=== PATIENT | male | born 1950 | race Caucasian/White ===

== ENCOUNTER 2021-02-07 22:01 | Inpatient (IN) | payer OTHER ==
[~2021-02-07] VITALS: Ht 172.7 cm; Wt 73.9 kg
--- NOTE | ~2021-02-07 | EKG ---
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: : 1950 Requested By: Nelida Crawford Order Number: [id number] MD: Measurements Intervals [place] Rate: 83 P: 44 WA: 169 QRS: -16 QRSD: 103 T: 32 QT: 382 QTc: 449 Interpretive Statements Sinus rhythm Borderline left axis deviation RSR' in V1 or V2, probably normal variant Compared to ECG 02/07/2021 22:15:54 Short [place] interval no longer present Atrial abnormality no longer present Left anterior fascicular block no longer present Right ventricular hypertrophy no longer present T-wave abnormality no longer present [email or web address] By: 22 2223 [facility] [place], [place] /AMARILIS
[2021-02-07 22:09] VITALS: BP 126/71
[2021-02-07 22:37] LABS: ABSOLUTE NEUTROPHILS 5.7 thou/uL (1.4-8.2); BASOPHILS 0.2 % (0.0-2.0); EOSINOPHILS 0.1 % (0.0-3.0); HEMATOCRIT 42.7 % (42.0-52.0); HEMOGLOBIN 14.2 gm/dL (14.0-18.0); LYMPHOCYTES 13.9 % (24.0-44.0); MCH 30.2 pg (26.0-34.0); MCHC 33.3 g/dL (28.0-37.0); MCV 90.5 fL (80.0-100.0); MONOCYTES 3.9 % (1.0-8.0); PLATELET COUNT 140 thou/uL (150-400); POLYS 81.9 % (36.0-66.0); RBC 4.71 mil/uL (4.50-6.00); RDW 13.4 % (10.5-14.5); WBC 6.9 thou/uL (4.0-11.0)
[2021-02-07 22:51] LABS: ANION GAP 14 mmol/L (7-16); BUN 13 mg/dL (7-18); CALCIUM 8.6 mg/dL (8.5-10.1); CHLORIDE 106 mmol/L (98-107); CO2 24 mmol/L (21-32); CREATININE 1.2 mg/dL (0.7-1.3); GLUCOSE 133 mg/dL (74-106); POTASSIUM 3.2 mmol/L (3.5-5.1); SODIUM 144 mmol/L (136-145)
[2021-02-07 23:00] LABS: ALBUMIN 3.2 g/dL (3.4-5.0); DIRECT BILIRUBIN < 0.1 mg/dL (<0.1-0.2); SGOT 87 U/L (15-37); SGPT 66 U/L (16-63); TOTAL BILIRUBIN 0.4 mg/dL (0.2-1.0); TOTAL PROTEIN 6.8 g/dL (6.4-8.2)
[2021-02-08 07:09] VITALS: BP 139/81
[2021-02-08 08:36] VITALS: BP 139/76
--- NOTE | 2021-02-08 10:25 | EKG ---
[place] [address] [address] [facility] [place] [address] ELECTROCARDIOGRAM REPORT Name: MARLENE PATEL Room #: 170-8 ADM IN M.R.#: [id number] Admission: 02/08/21 Attend Phys: Nelida Crawford MD Discharge: Date of : 48 Report #: [id number] [facility] ED Test Date: 2021-02-07 Test Time: 22:15:54 Pat Name: MARLENE PATEL Department: Room: 170 Gender: M Manager Services: MAGDI : 1950 Requested By: Miguel Angel Johnston Order Number: [id number] MD: Obdulio Lawrence Measurements Intervals [place] Rate: 84 P: 42 [place]: 47 QRS: -49 QRSD: 102 T: 18 QT: 414 QTc: 490 Interpretive Statements Marked artifact limits interpretation Supraventricular rhythm, probably sinus rhythm Leftward axis RSR' in V1 or V2, right VCD Nonspecific T abnormalities, inferior leads Borderline prolonged QT interval Artifact in lead(s) II No previous ECG available for comparison Electronically Signed On 02-08-2021 10:25:26 MANAGER E [employer]ERCE by Obdulio Lawrence [email or web address] <ELECTRONICALLY SIGNED> By: Obdulio Lawrence MD, [facility] 02/08/21 1025 2215 14 Obdulio Lawrence MD, [facility] /EPI
[2021-02-08 14:45] VITALS: BP 142/96
--- NOTE | 2021-02-08 17:37 | NUR ---
PT REVIEWED THE IMFORMATION PROVIDED FOR THE BARICITINIB. PT CONSENTED TO THE MEDICATION.
[2021-02-09 00:05] LABS: HIV ANTIBODY Non Reactive (Non Reactive)
[2021-02-09 05:24] LABS: ABSOLUTE NEUTROPHILS 3.3 thou/uL (1.4-8.2); BASOPHILS 0.1 % (0.0-2.0); HEMOGLOBIN 12.6 gm/dL (14.0-18.0); LYMPHOCYTES 13.2 % (24.0-44.0); MCHC 33.3 g/dL (28.0-37.0); MCV 90.2 fL (80.0-100.0); PLATELET COUNT 166 thou/uL (150-400); POLYS 78.7 % (36.0-66.0); RBC 4.21 mil/uL (4.50-6.00); RDW 13.3 % (10.5-14.5); WBC 4.2 thou/uL (4.0-11.0)
[2021-02-09 05:41] LABS: ALBUMIN 2.5 g/dL (3.4-5.0); CALCIUM 8.2 mg/dL (8.5-10.1); CREATININE 0.8 mg/dL (0.7-1.3); DIRECT BILIRUBIN 0.1 mg/dL (<0.1-0.2); POTASSIUM 4.2 mmol/L (3.5-5.1); TOTAL BILIRUBIN 0.2 mg/dL (0.2-1.0); TOTAL PROTEIN 6.1 g/dL (6.4-8.2)
[2021-02-09 07:58] VITALS: BP 153/100
--- NOTE | 2021-02-09 09:00 | EKG ---
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: : 1950 Requested By: Miguel Angel Johnston Order Number: [id number] MD: Obdulio Lawrence Measurements Intervals [place] Rate: 83 P: 44 MD: 169 QRS: -16 QRSD: 103 T: 32 QT: 382 QTc: 449 Interpretive Statements Sinus rhythm Borderline left axis deviation RSR' in V1 or V2, probably normal variant Compared to ECG 02/07/2021 22:19:05 No gross differences Electronically Signed On 02-09-2021 8:59:58 VENEER SORTER by Obdulio Lawrence [email or web address] <ELECTRONICALLY SIGNED> By: Obdulio Lawrence MD, [facility] 02/09/21 0859 22 22 Obdulio Lawrence MD, [facility] /EPI
[2021-02-09 12:53] VITALS: BP 116/88
--- NOTE | 2021-02-09 17:07 | NUR ---
70 year old males presents to the ED on 02/07/21 with cough and SOA for several days. Once the patient stood up in home on the day of ED presentation the patient had a syncopal event and was sent to the ED. Patient is not vaccinated for Covid. The patient was found to be COVID POSITIVE with Covid -19 pneumonia with bilateral pulmonary infiltrates and respiratory failure leading to current use of 9 liters of 02 per NC. Currently receiving a combinator of antiviral and anti-inflammatory medications with ABT's pending cultures. Although listed per assessment as A&O x4, the patient's spouse Meryl Lim at [phone] as next of kin and point of contact. Spoke with Meryl who states the patient had been independent at home with all needs prior. The spouse learned she too is positive today. She reports both had not been vaccinated. She also reports that their son works for an 02 provider and they will be able to have 02 available in the home if needed. The son's name is Leonard Cowan. The spouse also reports the patient is a . Will have this information given to Registration. Spouse reports working and beginning February 28 2021 the spouse will be on her insurance as primary as she has not had him on her policy. Explained CM role and that CM will follow for discharge needs.
[2021-02-09 23:49] VITALS: BP 128/57
[2021-02-10] VITALS (8 sets, daily range): BP systolic 136–164; BP diastolic 70–91
[2021-02-10 05:55] LABS: HEMATOCRIT 37.7 % (42.0-52.0); HEMOGLOBIN 12.6 gm/dL (14.0-18.0); MCH 30.2 pg (26.0-34.0); MCHC 33.5 g/dL (28.0-37.0); MCV 90.2 fL (80.0-100.0); RBC 4.18 mil/uL (4.50-6.00); RDW 13.4 % (10.5-14.5); WBC 6.3 thou/uL (4.0-11.0)
[2021-02-10 06:19] LABS: ALBUMIN 2.5 g/dL (3.4-5.0); CALCIUM 8.2 mg/dL (8.5-10.1); CREATININE 0.8 mg/dL (0.7-1.3); DIRECT BILIRUBIN 0.1 mg/dL (<0.1-0.2); MAGNESIUM 1.9 mg/dL (1.8-2.4); PHOSPHORUS 2.8 mg/dL (2.5-4.9); POTASSIUM 3.9 mmol/L (3.5-5.1); TOTAL BILIRUBIN 0.3 mg/dL (0.2-1.0); TOTAL PROTEIN 5.9 g/dL (6.4-8.2)
--- NOTE | 2021-02-10 11:07 | NUR ---
VM ON CM OFFICE LINE FROM PT'S SPOUSE LILIAN. CALLED HER AND UPDATED CONDITION BRIEFLY AND PROVIDED LISTENING LILIAN RELAYED HER CONCERNS ABOUT PT'S CARE (NOT BEING OFFERRED BATH, NO CALLS FROM STAFF OR DRLyndsay TO UPDATE). MESSAGED DR. MARX SPOUSE'S NAME AND CONTACT NUMBER WITH REQUEST TO CALL HER WITH UPDATE. SPOKE WITH COMPUTER HELP DESK REPRESENTATIVE CARING FOR PT WHO INDICATES SHE SPOKE WITH SPOUSE THIS AM AND EXPLAINED BATH AND LINEN CHANGE OFFERRED TO PT BUT HE DECLINED, AND WILL CONTINUE TO OFFER HYGEINE CARE.
--- NOTE | 2021-02-11 00:28 | HC ---
[facility] [place] [address] CONSULTATION Name: MARLENE PATEL Room #: 360-P [facility] IN M.R.#: [id number] Admission: 02/08/21 Attend Phys: Mu Dupont MD Discharge: Date of : 48 Report #: [id number] THIS REPORT FOR: cc: FAM - Family physician unknown FAM - Family physician unknown Raudel Sosa MD ~ DATE OF SERVICE: 02/08/2021 INFECTIOUS DISEASE CONSULTATION REASON FOR CONSULTATION: COVID-19 pneumonia and respiratory failure. HISTORY OF PRESENT ILLNESS: The patient is a 70-year-old with a 11-day history of low-grade fever, cough and progressive shortness of breath. Over the last 3 days, he has worsened. He had a syncopal episode this morning with prodrome. No injury. He presents to the Emergency Room for further evaluation. He has had cough productive of yellow sputum without hemoptysis. No pleuritic chest pain. No palpitations. No headache, anosmia, nausea, vomiting or diarrhea. He is unvaccinated for COVID-19. He has no prior history of COVID infection. No history of pneumonia, HIV, hepatitis or tuberculosis. He has had no travel. Lives with his who was also sick, but her COVID testing so far has been negative. REVIEW OF SYSTEMS: A 14-point review of system was negative other than what has been described above. He has had recurrence of high flow oxygen, now on 8 liters per nasal cannula. PAST MEDICAL HISTORY: Left Achilles tendon rupture with repair. FAMILY HISTORY: No tuberculosis. SOCIAL HISTORY: Nonsmoker, weekly alcohol use. ALLERGIES: None known. MEDICATIONS: As noted on his MAR, which were reviewed. PHYSICAL EXAMINATION: GENERAL: He is afebrile and hemodynamically stable. Alert and cooperative. He was short of breath with any activity. He had nonproductive cough. SKIN: Without rash or decubitus. No palpable adenopathy. HEENT: Eyes without scleral icterus and mouth without mucositis. NECK: Supple. LUNGS: Few crackles in the bases bilaterally without consolidation. HEART: Regular, without murmur, gallop or rub. ABDOMEN: Soft and nontender with no hepatosplenomegaly or mass. [facility] [address] [place] [address] CONSULTATION Name: MARLENE PATEL Room #: 360-[facility] IN M.R.#: [id number] Admission: 02/08/21 Attend Phys: Mu Dupont MD Discharge: Date of : 48 Report #: [id number] GENITORECTAL: Not performed. Spine nontender. EXTREMITIES: Without clubbing, cyanosis or edema. NEUROLOGIC: Cranial nerves intact and strength in the upper and lower extremities was symmetric and within normal limits. LABORATORY DATA: Reviewed. MICROBIOLOGY: Reviewed. IMAGING: Chest x-ray reviewed. IMPRESSION: COVID-19 pneumonia with bilateral pulmonary infiltrates, sores, respiratory failure, which has progressed, now on 8 liters of oxygen per nasal cannula. He desaturates with any activity. He has mild elevation in liver function tests, which I suspect is related to his viral infection. He had a syncopal episode. Evaluation in progress. RECOMMENDATION: We will continue with combination antiviral and anti-inflammatory program. I discussed with the patient addition of baricitinib to his treatment program. He was in agreement with plan of care. He will continue antibiotic coverage, pending culture results. Cardiovascular evaluation for syncopal episode. Follow serial laboratory studies and x-ray. <ELECTRONICALLY SIGNED> By: Raudel Sosa MD 02/11/21 0028 [id number] [id number] Raudel Sosa MD /nt
[2021-02-11 03:23] LABS: ABSOLUTE NEUTROPHILS 5.9 thou/uL (1.4-8.2); BASOPHILS 0.1 % (0.0-2.0); HEMATOCRIT 34.7 % (42.0-52.0); HEMOGLOBIN 12.3 gm/dL (14.0-18.0); LYMPHOCYTES 8.3 % (24.0-44.0); MCH 31.8 pg (26.0-34.0); MCHC 35.4 g/dL (28.0-37.0); MCV 89.7 fL (80.0-100.0); MONOCYTES 8.7 % (1.0-8.0); PLATELET COUNT 190 thou/uL (150-400); POLYS 82.9 % (36.0-66.0); RBC 3.87 mil/uL (4.50-6.00); RDW 13.3 % (10.5-14.5); WBC 7.1 thou/uL (4.0-11.0)
[2021-02-11 05:05] VITALS: BP 155/83
[2021-02-11 05:30] LABS: ALBUMIN 2.5 g/dL (3.4-5.0); CREATININE 0.7 mg/dL (0.7-1.3); DIRECT BILIRUBIN 0.1 mg/dL (<0.1-0.2); MAGNESIUM 1.8 mg/dL (1.8-2.4); PHOSPHORUS 2.9 mg/dL (2.5-4.9); POTASSIUM 3.8 mmol/L (3.5-5.1); TOTAL BILIRUBIN 0.4 mg/dL (0.2-1.0); TOTAL PROTEIN 5.5 g/dL (6.4-8.2)
--- NOTE | 2021-02-11 07:22 | NUR ---
PT ARRIVED ON UNIT AT 2200, AFTER A TWO DAY STAY IN ER. A/0X4, UP AD MIREILLE AND AFEBRILE. HR OVER NIGHT BOUNCED BETWEEN MID 30'S UP TO 60'S. I ASKED PT IF HIS HEART RATE NORMALLY LOW AND HE STATES IN THE 60'S. PT WORKS OUT 6 DAYS A WEEK. 02 SATURATION WAS 92% ON 9L, WITH A NPC. FOLLOWING POC WITH IV ABX AND COVID POC. PT HAD NO COMPLAINTS OVER NIGHT.
[2021-02-11 07:47] VITALS: BP 144/92
[2021-02-11 11:29] VITALS: BP 140/72
[2021-02-11 14:10] LABS: T-SPOT.TB Negative
--- NOTE | 2021-02-11 15:04 | NUR ---
SW reviewed chart and spoke with nursing and attending physician. Pt remains in Enhanced Isolation due to COVID. Pt is afebrile and on 12L of O2. Pt is on IV abx/IV steroids. Pt has been started on Remdesivir and Ivermectin. Therapy evals to be ordered when pt is able to participate. SW is following to assist as needed with discharge planning.
[2021-02-11 16:43] VITALS: BP 135/70
--- NOTE | 2021-02-11 18:09 | NUR ---
ASSUNMED PATIENT CARE AT 0700. A/0 4. INCREASED 02 NEEDF TO 12L. SOB WITH EXERTION. WILL KEEP MONITOR,
[2021-02-11 19:07] VITALS: BP 153/88
[2021-02-12 02:54] VITALS: BP 148/90
[2021-02-12 03:36] LABS: HEMATOCRIT 36.9 % (42.0-52.0); HEMOGLOBIN 12.7 gm/dL (14.0-18.0); MCH 30.5 pg (26.0-34.0); MCHC 34.5 g/dL (28.0-37.0); MCV 88.6 fL (80.0-100.0); RBC 4.17 mil/uL (4.50-6.00); RDW 13.3 % (10.5-14.5); WBC 6.1 thou/uL (4.0-11.0)
[2021-02-12 04:05] LABS: ALBUMIN 2.5 g/dL (3.4-5.0); CALCIUM 8.3 mg/dL (8.5-10.1); CREATININE 0.8 mg/dL (0.7-1.3); DIRECT BILIRUBIN 0.1 mg/dL (<0.1-0.2); MAGNESIUM 1.8 mg/dL (1.8-2.4); PHOSPHORUS 2.8 mg/dL (2.5-4.9); POTASSIUM 3.6 mmol/L (3.5-5.1); TOTAL BILIRUBIN 0.5 mg/dL (0.2-1.0); TOTAL PROTEIN 5.7 g/dL (6.4-8.2)
[2021-02-12 05:12] LABS: BE(vivo) -2.8 mmol/L (-2 to +3); HCO3 19.8 mmol/L (22.0-26.0); PCO2 28.5 mmHg (35.0-45.0); PO2 61.9 mmHg (80.0-100.0); sO2 93.3 % (92.0-98.0)
--- NOTE | 2021-02-12 05:56 | NUR ---
FOLLOWING COVID POC WITH IV ABX. 02 SATURATIONS FLUCTUATED FROM 10-15l VIA NC. APPROX 0400 PT HAD COUGHING ATTACK AND COULD NOT RECOVER 02 SATS ABOVE 90 FOR 20 MINUTES. CALLED ACQUISITIONS ASSISTANT AND RECEIVED ORDER FOR 2MG MORPHINE FOR AIR HUNGER AND ABG. RT PLACED VENTI MASK AT 50%. REASSESSED 02 SATURATION AND SATS WERE AT 93-94% AND PT RESTING COMFORTABLY. WILL CONTINUE TO MONITOR. CALL LIGHT WITHIN REACH.
[2021-02-12 10:57] VITALS: BP 145/94
[2021-02-12 15:40] VITALS: BP 117/76
--- NOTE | 2021-02-12 18:33 | NUR ---
SOB WITH ACTIVITY. DRY COUGH. ON OPTIFLOW 55L/100%. NOT TOWARDS POC GOALS.
[2021-02-12 20:29] VITALS: BP 123/78
[2021-02-13 03:19] LABS: ALBUMIN 2.5 g/dL (3.4-5.0); CREATININE 0.8 mg/dL (0.7-1.3); PHOSPHORUS 3.9 mg/dL (2.5-4.9); POTASSIUM 3.6 mmol/L (3.5-5.1)
[2021-02-13 03:50] VITALS: BP 121/73
[2021-02-13 07:12] VITALS: BP 141/87
[2021-02-13 10:00] LABS: ALBUMIN 2.7 g/dL (3.4-5.0); DIRECT BILIRUBIN 0.2 mg/dL (<0.1-0.2); TOTAL BILIRUBIN 0.5 mg/dL (0.2-1.0); TOTAL PROTEIN 5.3 g/dL (6.4-8.2)
[2021-02-13 11:04] VITALS: BP 106/76
[2021-02-13 15:10] VITALS: BP 121/77
--- NOTE | 2021-02-13 15:26 | NUR ---
INDERJIT reviewed chart and spoke with nursing and attending physician. Pt remains in Enhanced Isolation due to COVID. Pt is afebrile and requiring optiflow. Pt is on IV lasix and Remdesivir. No weekend discharge planned. INDERJIT spoke with pt's , Meryl, via phone to provide update. All questions answered. Contact info for INDERJIT provided. INDERJIT requested therapy evals to be ordered if pt is able to tolerate. INDERJIT is following to assist as needed with discharge planning.
[2021-02-13 19:35] VITALS: BP 113/69
--- NOTE | 2021-02-13 21:54 | NUR ---
PT WATCHING TV. OPTI SUMIT AND CONTINUOUS PULSE OX ATTACHED. LUNGS DIMINISHED. CHEERFUL TALKATIVE. DECLINED HS SNACK. PT CALLS FOR ASSIST.
[2021-02-14 05:15] VITALS: BP 119/77
[2021-02-14 05:51] LABS: ABSOLUTE NEUTROPHILS 6.3 thou/uL (1.4-8.2); BASOPHILS 0.1 % (0.0-2.0); EOSINOPHILS 0.4 % (0.0-3.0); HEMATOCRIT 38.7 % (42.0-52.0); HEMOGLOBIN 13.2 gm/dL (14.0-18.0); MCH 30.3 pg (26.0-34.0); MCHC 34.2 g/dL (28.0-37.0); MCV 88.8 fL (80.0-100.0); MONOCYTES 4.4 % (1.0-8.0); PLATELET COUNT 263 thou/uL (150-400); POLYS 83.1 % (36.0-66.0); RBC 4.35 mil/uL (4.50-6.00); RDW 13.4 % (10.5-14.5); WBC 7.6 thou/uL (4.0-11.0)
[2021-02-14 06:09] LABS: ALBUMIN 2.5 g/dL (3.4-5.0); CALCIUM 8.6 mg/dL (8.5-10.1); DIRECT BILIRUBIN 0.1 mg/dL (<0.1-0.2); PHOSPHORUS 3.8 mg/dL (2.6-4.7); POTASSIUM 3.8 mmol/L (3.5-5.1); TOTAL BILIRUBIN 0.5 mg/dL (0.2-1.0)
[2021-02-14 07:18] VITALS: BP 103/69
[2021-02-14 11:27] VITALS: BP 120/68
[2021-02-14 16:14] VITALS: BP 122/70
--- NOTE | 2021-02-14 16:44 | NUR ---
RN ASSUMED PT'S CARE AT 0700AM, PT IS A&OX4, PT IS ON OPTIFLOW 02 60-75&, 35-50L/MIN, PT'S O2SAT STAY AT 93-96%, PT STILL HAS SOB WITH ACTIVITIES, PT IS CONTINUING IV LASXI AND TREAT COVID MEDICATIONS, PT'S VS ARE STABLE BY THIS TIME,
[2021-02-14 19:44] VITALS: BP 130/57
--- NOTE | 2021-02-15 03:37 | NUR ---
Pt. rested quietly during the night when checked on during frequent rounds. Tylenol given for c/o back pain (see emar) with some relief noted. He has non-productive congested cough and head of the bed elevated. On optiflo at 60% and no c/o increased shortness of air.
[2021-02-15 03:48] VITALS: BP 99/58
[2021-02-15 05:33] LABS: HEMATOCRIT 40.9 % (42.0-52.0); HEMOGLOBIN 13.5 gm/dL (14.0-18.0); MCH 29.5 pg (26.0-34.0); MCV 89.2 fL (80.0-100.0); PLATELET COUNT 294 thou/uL (150-400); RBC 4.59 mil/uL (4.50-6.00); RDW 13.4 % (10.5-14.5); WBC 8.9 thou/uL (4.0-11.0)
[2021-02-15 06:01] LABS: ALBUMIN 2.6 g/dL (3.4-5.0); CALCIUM 8.7 mg/dL (8.5-10.1); DIRECT BILIRUBIN 0.2 mg/dL (<0.1-0.2); PHOSPHORUS 4.3 mg/dL (2.6-4.7); POTASSIUM 3.9 mmol/L (3.5-5.1); TOTAL BILIRUBIN 0.6 mg/dL (0.2-1.0); TOTAL PROTEIN 6.2 g/dL (6.4-8.2)
[2021-02-15 07:10] VITALS: BP 119/73
[2021-02-15 12:49] LABS: ABSOLUTE NEUTROPHILS 6.9 thou/uL (1.4-8.2)
[2021-02-15 12:50] LABS: ANISOCYTOSIS 1+; OVALOCYTES 1+
[2021-02-15 15:11] VITALS: BP 129/78
--- NOTE | 2021-02-15 15:25 | NUR ---
RN ASSUMED PT'S CARE AT 0700AM, PT IS A&OX4, PT'S SOB HAS IMPROVED, PT'S O2 HAS CHANGED TO 6-8L/MIN/NC FROM OPTIFLOW O2, PT'S O2SAT STAY AT 92-96%, PT'S VS ARE STABLE AND PT DENIES PAIN BY THIS TIME, PT IS CONTINUING TREAT COVID MEDICATIONS,
[2021-02-15 19:35] VITALS: BP 147/74
[2021-02-16 04:10] VITALS: BP 130/69
[2021-02-16 05:03] LABS: ALBUMIN 2.7 g/dL (3.4-5.0); CALCIUM 8.9 mg/dL (8.5-10.1); DIRECT BILIRUBIN 0.1 mg/dL (<0.1-0.2); PHOSPHORUS 4.3 mg/dL (2.5-4.9); POTASSIUM 3.4 mmol/L (3.5-5.1); TOTAL BILIRUBIN 0.4 mg/dL (0.2-1.0); TOTAL PROTEIN 6.2 g/dL (6.4-8.2)
--- NOTE | 2021-02-16 06:07 | NUR ---
PT A/0X4 AND UP AD MIREILLE. 02 NEEDS DECREASING, OFF OPTIFLOW AND ON 5L VIA NC WITH 98%. HR OVERNIGHT IS IN MID 40'S AND UP. ADJUST HR ON CONTINUOUS PULSE OX PT HAS MAJOR COMPLAINTS WHEN IT SOUNDS OFF. VSS AND CALL LIGHT WITHIN REACH.
[2021-02-16 07:54] VITALS: BP 120/75
--- NOTE | 2021-02-16 09:22 | NUR ---
Assess due to length of stay. Admit with COVID pneumonia. Appetite has been good, >75% meals, wts are stable. On vitamin pack for covid protocol. Off optiflow and on NC. Low nutrition risk
[2021-02-16 11:14] VITALS: BP 115/74
--- NOTE | 2021-02-16 14:20 | NUR ---
DISCHARGE NOTE: INDERJIT reviewed chart and spoke with nursing and attending physician. Pt remains in Enhanced Isolation due to COVID. Pt requesting to discharge home today. Rest/exercise oximetry completed. Pt does not need home O2. INDERJIT updated attending physician. Pt is medically stable to discharge home today. INDERJIT placed call to pt's room. No answer. INDERJIT spoke with pt's s/o, Meryl, via phone to provide update. INDERJIT discussed possible HH referral. Meryl states they do not feel that they need HH at this time. Pt does have an O2 concentrator at home to use if needed. Pt will follow up with his PCP in 1-2 weeks. Meryl states she will provide transportation home. INDERJIT updated pt's nurse. No additional SW needs identified at this time, but is available to assist should needs arise.
[2021-02-16] MEDS ORDERED: PREDNISONE 20 M20 M1 PO (14:21)
[2021-02-16] MEDS ORDERED: MUCINEX600 MG PO (14:21)
[2021-02-16 14:31] VITALS: BP 115/74
--- NOTE | 2021-02-16 17:56 | NUR ---
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
== END 2021-02-16 15:27 | disposition home or self-care (01) | DRG 871 ==
LOC: ER 22:01 → 3W 02-08 02:09 → EROBS 02-08 02:09 → 3W 02-10 21:10
PROVIDERS: Internal Medicine; Nurse Practitioner Family; Specialist; Student in an Organized Health Care Education/Training Program; ADMIT Internal Medicine; ATTEND Internal Medicine
PROC: 5A0935A Assistance with Respiratory Ventilation, Less than 24 Consecutive Hours, High Flow/Velocity Cannula (ICD-10-PCS; principal; 2021-02-08)
PROC: XW033E5 Introduction of Remdesivir Anti-infective into Peripheral Vein, Percutaneous Approach, New Technology Group 5 (ICD-10-PCS; principal; 2021-02-08)
PROC: 5A0945A Assistance with Respiratory Ventilation, 24-96 Consecutive Hours, High Flow/Velocity Cannula (ICD-10-PCS; 2021-02-09)
PROC: 5A0935A Assistance with Respiratory Ventilation, Less than 24 Consecutive Hours, High Flow/Velocity Cannula (ICD-10-PCS; 2021-02-11)
PROC: 5A0935A Assistance with Respiratory Ventilation, Less than 24 Consecutive Hours, High Flow/Velocity Cannula (ICD-10-PCS; 2021-02-12)
PROC: 5A0935A Assistance with Respiratory Ventilation, Less than 24 Consecutive Hours, High Flow/Velocity Cannula (ICD-10-PCS; 2021-02-13)
PROC: 5A0935A Assistance with Respiratory Ventilation, Less than 24 Consecutive Hours, High Flow/Velocity Cannula (ICD-10-PCS; 2021-02-14)
PROC: 5A0935A Assistance with Respiratory Ventilation, Less than 24 Consecutive Hours, High Flow/Velocity Cannula (ICD-10-PCS; 2021-02-15)
DX: A41.89 Other specified sepsis (principal); U07.1 COVID-19; J12.82 Pneumonia due to coronavirus disease 2019; J80 Acute respiratory distress syndrome; E44.0 Moderate protein-calorie malnutrition; E87.6 Hypokalemia; K21.9 Gastro-esophageal reflux disease without esophagitis; R74.01 Elevation of levels of liver transaminase levels; D69.6 Thrombocytopenia, unspecified; Z68.24 Body mass index [BMI] 24.0-24.9, adult; Z28.21 Immunization not carried out because of patient refusal
CPT/HCPCS: 10879